=== PATIENT | female | born 1965 | race Caucasian/White ===

== ENCOUNTER 2024-09-29 16:59 | Emergency (ER) | payer OTHER ==
[~2024-09-29] VITALS: Ht 157.5 cm; Wt 48.2 kg
[2024-09-29 17:13] VITALS: BP 116/75; PULSE 65; RESP 15; O2SAT 99
--- NOTE | 2024-09-29 17:43 | Physician Documentation ---
History of Present Illness ~ Chief Complaint: Needlestick Stated Complaint: CLEARANCE Time Seen by MD: 17:35 Primary Medical Doctor: NONE HPI 59-year-old female no employee and a half abdominal was drawing blood using a syringe and needle when she accidentally punctured her left middle finger with a needle when it went through the skin. Patient washed her hands thoroughly prior to being evaluated Tetanus within 5 Years?: Yes Medication Reconciliation Allergies: Coded Allergies: No Known Allergies (Unverified , 09/29/24) Past Medical History Past Medical History: No Pertinent History Review of Systems All Other Systems at this time: Reviewed and Negative Integumentary: Reports: see HPI Physical Exam Vital Signs: Temperature: 99.0, Heart Rate: 65, Respiratory Rate: 15, BP: 116/75, Pulse Oximetry: 99, Weight: 48.180 Oxygen Flow Rate: 0 General Appearance: alert, WD/WN, no apparent distress Skin Small puncture wound to left middle finger Progress Results/Orders Results/Orders Vital Signs 09/29/24 09/29/24 17:13 18:53 Temp 99.0 99.0 Pulse 65 Resp 15 B/P (MAP) 116/75 Pulse Ox 99 O2 Flow Rate 0 Medical Decision Making Findings Patient has stopped occupational have labs will be drawn in the emergency department discharge paperwork provided to patient patient to follow up with occupational health Departure Time of Disposition: 17:42 Disposition: 01 HOME / SELF CARE / HOMELESS Impression: Primary Impression: Needlestick injury accident Condition: Stable Discharge Instructions: Needlestick and Sharps Injury Additional Instructions: F/U with occupational health Referrals: NO PRIMARY CARE PROVIDER (PCP) Education Educated: Patient Educated regarding: diagnosis, treatment, need for follow up Signature Scribe Signature: No scribe Attestation: The note accurately reflects work and decisions made by me.Katharina Hooks - CORE ANALYST 09/29/24 17:43 KATHARINA HOOKS NP Sep 29, 2024 17:43 WILFRED GUTIERREZ MD Sep 30, 2024 09:56
[2024-09-29 18:53] VITALS: TEMP 99
== END 2024-09-29 18:54 | disposition home or self-care (01) ==
LOC: ER 17:01
DX: Z77.21 Contact with and (suspected) exposure to potentially hazardous body fluids (principal); W46.0XXA Contact with hypodermic needle, initial encounter; Y93.89 Activity, other specified; Y92.89 Other specified places as the place of occurrence of the external cause; Y99.0 Civilian activity done for income or pay
CPT/HCPCS: 99281; 99282